=== PATIENT | female | born 1960 | race Caucasian/White ===

== ENCOUNTER 2024-01-06 09:24 | Outpatient (CLI) | payer MEDICARE, SELFPAY ==
--- NOTE | 2024-01-06 10:49 | W.ANESCHARGE ---
Anesthesia Charges Start Date/Time Anesthesia Start Date: 01/06/24 Anesthesia Start Time: 10:31 Stop Date/Time Anesthesia Stop Date: 01/06/24 Anesthesia Stop Time: 11:20
--- NOTE | 2024-01-06 11:22 | W.ANESCHARGE ---
Anesthesia Charges Start Date/Time Anesthesia Start Date: 01/06/24 Anesthesia Start Time: 10:31 Stop Date/Time Anesthesia Stop Date: 01/06/24 Anesthesia Stop Time: 11:20
== END 2024-01-06 09:25 | disposition home or self-care (01) ==
PROVIDERS: PCP Registered Nurse; Visit Provider Surgery
DX: Z12.11 Encounter for screening for malignant neoplasm of colon (principal); D12.3 Benign neoplasm of transverse colon; D12.8 Benign neoplasm of rectum; K63.89 Other specified diseases of intestine; Z86.0100 Personal history of colon polyps, unspecified
CPT/HCPCS: 00811; 45381; 45385; 88305; J2704

== ENCOUNTER 2024-01-22 10:39 | Outpatient (CLI) | payer MEDICARE, SELFPAY ==
--- OUTSIDE RECORDS SUMMARY | 2024-01-22 10:47 | XMS_ITS | Continuity of Care Document ---
Author Organization [facility] Address [address] [place] [address] Phone Care Team Providers Care Curing Oven Tender Name Role Phone Hamzah PAVON MD, [place] Unavailable Unavailable Advance Directives Directive Yes / No Effective Date File Name No Information Encounters Encounter Description Practice Location Reason(s) For Visit Diagnoses Date Provider Providers Copied on Encounter [facility], [address], [place], [place], [id number], [place] tel:[phone] No Information 0-200 7 Hamzah Haas. [address], [place], [address], [place]. tel:[phone] Referring Provider: [place] Hernandez, [address] [place], [place], [facility]. tel:[phone] Family History Family Member Type Diagnosis Age At Onset No Information Payers Payer name Insurance type Covered alliance party ID Authoriza tion(s) Blue Plus BL [id number] Social History Type Description Quantity Date Captured Comments Sex Female Smoking Status No Information Chief Complaint And Reason For Visit No Information Reason For Referral Reason For Referral No Information History Of Present Illness Encounter Date Complaint History Of Prese nt Illness No Information Functional Status Date Functional Assessmen t No Information Instructions Date Instruction Additional Infor mation No Information Assessments Type Assessment Date No Information Patient Care Teams Name Effective Dates (start - stop) Status Members No Information
== END 2024-01-22 10:40 | disposition home or self-care (01) ==
PROVIDERS: PCP Registered Nurse; Visit Provider Registered Nurse
DX: E55.9 Vitamin D deficiency, unspecified (principal); Z13.29 Encounter for screening for other suspected endocrine disorder
CPT/HCPCS: 80053; 84439; 84443

== ENCOUNTER 2024-03-16 13:07 | Outpatient (CLI) | payer MEDICARE, SELFPAY ==
--- NOTE | 2024-03-16 13:20 | CRLHL7_ITS ---
For Patients: As a result of the Cures Act, medical imaging exams and procedure reports are released immediately into your electronic medical record. You may view this report before your referring provider. If you have questions, please contact your health care provider. BILATERAL SCREENING MAMMOGRAM WITH COMPUTER-AIDED DETECTION AND TOMOSYNTHESIS TECHNIQUE: CC and MLO views were obtained. These mammographic images have been obtained using full-field digital technique. These mammographic images were interpreted with the benefit of computer-aided detection. Breast Tomosynthesis was used in this interpretation. COMPARISON FILM: 04/04/18, 03/16/16, 01/26/10. FINDINGS: There are scattered areas of fibroglandular density IMPRESSION: There is no radiographic evidence for malignancy. ASSESSMENT: BI-RADS Category 1: Negative RECOMMENDATION: Routine screening mammogram in 1 year. A lay language report of this examination will be provided to the patient. Ayaz Truong M.D. Diagnostic Radiologist [email or web address]/ya Transcribed: 3:41 p.katie pandya/Dictated by: Ayaz Truong MD @ 03/17/2024 8:50:00 AM (Electronically Signed)
== END 2024-03-16 13:08 | disposition home or self-care (01) ==
LOC: MAMMO 13:08
PROVIDERS: PCP Registered Nurse; Visit Provider Registered Nurse
DX: Z12.31 Encounter for screening mammogram for malignant neoplasm of breast (principal)
CPT/HCPCS: 77063; 77067

== ENCOUNTER 2024-04-22 14:50 | Outpatient (CLI) | payer MEDICARE, SELFPAY ==
--- NOTE | 2024-04-22 15:00 | CRLHL7_ITS ---
For Patients: As a result of the Century Cures Act, medical imaging exams and procedure reports are released immediately into your electronic medical record. You may view this report before your referring provider. If you have questions, please contact your health care provider. Indication: Lung cancer screening Technique: Low-dose lung cancer screening CT chest without contrast Comparison: None Findings: Heart is normal in size without pericardial effusion. Great vessels are in caliber. There is no mediastinal mass or lymphadenopathy. Linear right upper lobe pulmonary nodule average is 5 millimeters. There are few other scattered sub 4 millimeter pulmonary nodules. 18 millimeter right adrenal gland is indeterminate with Hounsfield units of 14. Bones and soft tissues are unremarkable. Impression: 1. 18 millimeter right adrenal nodule is not adequately characterized by this study, adrenal adenoma versus more aggressive adrenal neoplasm. Recommend appropriate laboratory correlation and adrenal CT to adequately characterize. 2. Pulmonary nodules averaging less than 6 millimeters, Lung RADS category 2/benign. Recommend continuing annual low-dose lung cancer screening chest CT. Please note that all CT scans at this facility use dose modulation, iterative reconstruction, and/or weight-based dosing when appropriate to reduce radiation dose to as low as reasonably achievable. Dictated by Azar Wallace MD @ 04/23/2024 9:48:55 AM (Electronically Signed)
== END 2024-04-22 14:51 | disposition home or self-care (01) ==
LOC: CT 14:51
PROVIDERS: PCP Registered Nurse; Visit Provider Registered Nurse
DX: Z12.2 Encounter for screening for malignant neoplasm of respiratory organs (principal); E27.9 Disorder of adrenal gland, unspecified; R91.8 Other nonspecific abnormal finding of lung field; F17.210 Nicotine dependence, cigarettes, uncomplicated
CPT/HCPCS: 71271

== ENCOUNTER 2024-05-13 15:00 | Outpatient (RCR) | payer MEDICARE, SELFPAY ==
--- NOTE | 2024-03-02 15:47 | PT.OPEX ---
PT [facility] Outpatient Eval PT [facility] Outpatient Eval Start: 02/13/24 16:40 Freq: Status: Active Protocol: Document 03/02/24 08:21 MLS (Rec: 03/02/24 15:45 MLS [id number]) E-signed By Naina Singh DPT Physical Therapy Outpatient Evaluation Insurance Information Recert Due Date 05/30/24 Insurance Name Medicare B Medical Diagnosis M54.2 Cervicalgia Treating Diagnosis Cervical tightness Referring MD Criss Jean Baptiste, VENDOR SPECIALIST Subjective Preferred Name Carlita Subjective Patient is a 63 year old female who presents to physical therapy with signs and symptoms consistent with cervical pain. She states that she has a lot of neck tightness. She states that it has been going on for years. She states that she has arthritis in her neck. She states that she gets vertigo regularly. She reports that she has jaw fatigue and it is painful at times. She reports that her nose is stuffed up and drips regularly. She states that she used to get auras in her eyes, but has not gotten a migraine. She watches her grandchildren 5 days a week, 2, 3 and 6 years old. No complaints of numbness and tingling into arms. She states that nothing makes the pain worse, but it is constantly there. Alleviating factors include: massage. Significant past medical history includes lumbar fusion (2006). Patient would like to achieve less pain through physical therapy sessions. 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 Objective Other/Pertinent Objective SPINAL ALIGNMENT/POSTURE Forward shoulders CERVICAL ROM Flexion: 50 Extension: 35 Right Rotation: 50 Left Rotation: 45 Right side bend: 20 Left Side bend: 20 SHOULDER AROM Grossly tested WNL B NECK/SHOULDER MMT: Shoulder shrug: R 4+/5 L 4+/5 Shoulder flexion: R 4+/5 L 4+/ 5 Shoulder abduction: R 4/5 L 4/ 5 Shoulder External Rotation: R 4/5 L 4/5 Shoulder Internal Rotation: R 4/5 L 4/5 Elbow Flexion: R 5/5 L 5/5 Elbow Ext: R 5/5 L 5/5 SPECIAL TEST -Spurlings Test: negative -Bakody Sign: negative -Cervical distraction test: negative Headaches - no JOINT MOBILITY/PALPATION Severe tenderness and tightness noted with palpation of bilateral upper trapezius TX: Access Code: [email or web address] URL: [email or web address] Date: 03/02/2024 Prepared by: Naina Singh Exercises - Seated Cervical Sidebending AROM - 1 x daily - 7 x weekly - 3 sets - 10 reps - Seated Cervical Rotation AROM - 1 x daily - 7 x weekly - 3 sets - 10 reps Functional Test Performed & Score 15/50 0-4 = no disability 5-14 = mild disability 15-24 = moderate disability 25-34 = severe disability >34 = complete disability Assessment Assessment/Impression Pt is a 63 year old female who presents with concerns of cervical pain and tightness. Patient also has notable objective findings including limited ROM, tenderness to palpation, and decreased strength which are also likely contributing to the problem. Patient is a good candidate for skilled therapy to target deficits described above. Skilled PT intervention is necessary for use of therapeutic exercise manual therapy, neuromuscular re- education, gait training, and therapeutic activity. Functional impairments include difficulty with: driving, sleeping, exercising, ADLs. See appropriate sections of PT eval for complete list of goals and POC. D/C plan and criteria is for pt to achieve the goals as listed below or until max rehab potential is met. Pt was agreeable with plan of care and goals established. Primary Functional Limitations driving sleeping exercising ADLS Plan of Care Rehabilitation Potential Good Physical Therapy Goals Within 10-12 weeks: 1.Pt will demonstrate independence in performance of home exercise program with the use of video and/or handouts in order to optimize functional mobility and reduce risk for re-injury. 2.Pt will demonstrate consistent HEP compliance to ensure progress in reaching established goals during course of care. 3.Patient will be able to drive for up to one hour without pain. 4.Patient will report pain levels <2/10 with all activities in order to improve functional mobility at home, work and during functional leisure activities. 5.Patient is able to sleep without waking more than one time due to pain in a 6-8 hour time frame. 6.Patient will be able to lift household items from the floor to shoulder height to perform ADLs without pain. 7.Pt will exhibit 5 pt improvement in Neck Disability Index measure to demonstrate functional improvement and progress towards goals Coordination/Communication With Referral Source Treatment Plan/Direct Interventions Joint Mobilization,Manual Therapy,Neuromuscular Re-ed, Therapeutic Activities, Therapeutic Exercises Patient Will Be Discharged From Therapy Independently Progressing Evaluation Billing Untimed Code Treatment Minutes 30 Complexity Low Certification Information Provider Signature Required Yes Provider Signature Shows Agreement With POC & Medical Necessity Physician NPI Number Write NPI# Here Physician Comment/Change : Physician Signature & Date Requested Please Sign/Date Here
== END 2024-07-27 09:41 | disposition home or self-care (01) ==
PROVIDERS: PCP Registered Nurse; Visit Provider Registered Nurse
DX: M54.2 Cervicalgia (principal); Z51.89 Encounter for other specified aftercare
CPT/HCPCS: 97110; 97140; 97161

== ENCOUNTER 2024-05-27 09:36 | Outpatient (CLI) | payer MEDICARE, SELFPAY ==
--- NOTE | 2024-05-27 10:00 | CRLHL7_ITS ---
For Patients: As a result of the Century Cures Act, medical imaging exams and procedure reports are released immediately into your electronic medical record. You may view this report before your referring provider. If you have questions, please contact your health care provider. Indication: Right adrenal nodule Technique: Limited noncontrast CT abdomen performed Please note that all CT scans at this facility use dose modulation, iterative reconstruction, and/or weight-based dosing when appropriate to reduce radiation dose to as low as reasonably achievable. Comparison: CT lung cancer screening exam 04/22/2024 Findings: Low-density circumscribed right adrenal nodule is present measuring 1.7 cm with Hounsfield units averaging 11. Normal kidneys. Visualized ureters normal. Left adrenal gland unremarkable. Normal spleen. Pancreas within normal limits. Atherosclerotic changes. Few scattered sub cm retroperitoneal lymph nodes are present which are considered incidental. Gallbladder normal. Normal noncontrast enhanced liver. Dependent areas of atelectasis/scarring noted. Postoperative changes to the lower lumbar spine. Impression: Benign 1.7 cm right adrenal adenoma. Please note that all CT scans at this facility use dose modulation, iterative reconstruction, and/or weight-based dosing when appropriate to reduce radiation dose to as low as reasonably achievable. Dictated by Ayaz Truong MD @ 05/28/2024 7:27:11 AM (Electronically Signed)
== END 2024-05-27 09:37 | disposition home or self-care (01) ==
LOC: CT 09:36
PROVIDERS: PCP Registered Nurse; Visit Provider Registered Nurse
DX: E27.9 Disorder of adrenal gland, unspecified (principal)
CPT/HCPCS: 74150

== ENCOUNTER 2024-12-02 14:39 | Outpatient (CLI) | payer MEDICARE, SELFPAY | END 2024-12-02 14:40 | disposition home or self-care (01) | PROVIDERS: Visit Provider Internal Medicine | DX: R42 Dizziness and giddiness (principal); F31.9 Bipolar disorder, unspecified | CPT/HCPCS: 80053; 84439; 84443 ==

== ENCOUNTER 2024-12-08 13:42 | Outpatient (CLI) | payer MEDICARE, SELFPAY ==
--- NOTE | 2024-12-08 14:00 | CRLHL7_ITS ---
For Patients: As a result of the Century Cures Act, medical imaging exams and procedure reports are released immediately into your electronic medical record. You may view this report before your referring provider. If you have questions, please contact your health care provider. INDICATION: Vertigo TECHNIQUE: Non-contrast CT of the head is submitted. No comparisons. FINDINGS: The ventricles, sulci and gyri are of normal size, shape and contour. Midline structures are centrally located. No convincing evidence of intra- or extra-axial fluid collections. IMPRESSION: 1. No radiographic evidence of acute intracranial abnormalities. Please note that all CT scans at this facility use dose modulation, iterative reconstruction, and/or weight-based dosing when appropriate to reduce radiation dose to as low as reasonably achievable. Dictated by Nicola Fu MD @ 12/09/2024 8:29:07 AM (Electronically Signed)
== END 2024-12-08 13:43 | disposition home or self-care (01) ==
LOC: CT 13:43
PROVIDERS: PCP Internal Medicine; Visit Provider Internal Medicine
DX: R42 Dizziness and giddiness (principal)
CPT/HCPCS: 70450

== ENCOUNTER 2024-12-14 14:49 | Emergency (ER) | payer MEDICARE, SELFPAY ==
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
[2024-12-14 14:55] VITALS: BP 127/94; PULSE 90; RESP 18; TEMP 36.9; O2SAT 93; BMI 34.2
[2024-12-14 16:01] LABS: PCR FLU A Negative PCR FLU A (Negative); PCR FLU B Negative PCR FLU B (Negative); PCR RSV Negative PCR RSV (Negative); SARS PCR* Negative SARS-CoV-2 (Negative)
[2024-12-14 16:24] VITALS: BP 114/73; PULSE 87; RESP 18; O2SAT 97
--- NOTE | 2024-12-14 16:33 | CRLHL7_ITS ---
For Patients: As a result of the Cures Act, medical imaging exams and procedure reports are released immediately into your electronic medical record. You may view this report before your referring provider. If you have questions, please contact your health care provider. INDICATION: Abdomen pain TECHNIQUE: CT Abdomen and pelvis with i.v. contrast. Coronal and sagittal reformats were obtained. CONTRAST: 92 mL Isovue 370 COMPARISON: 05/27/2024 FINDINGS: Lower chest: Segmental consolidation is present in the lateral right basilar lower lobe, likely due to pneumonia. Liver: Several small cysts are present in the right lobe of the liver measuring up to 6 mm. Spleen: Unremarkable. Pancreas: Unremarkable. Gallbladder: Unremarkable. Kidney: Unremarkable. No kidney or ureteral stones or obstruction seen. Adrenal: Unremarkable. Bowel: The stomach, small bowel, and colon are unremarkable. Previous appendectomy noted with no significant appendiceal stump identified. Vascular: Unremarkable. Lymph: Unremarkable. Peritoneum: Unremarkable. No pneumoperitoneum is seen. No significant ascites is noted. Pelvis: Unremarkable. Soft tissue: Unremarkable. Bone: Anterior and posterior spinal fusion of L5-S1 is noted. IMPRESSION: 1. Segmental consolidation is present in the lateral right basilar lower lobe, likely due to pneumonia. Dictated by Jaison Stevenson MD @ 12/14/2024 6:18:11 PM Please note that all CT scans at this facility use dose modulation, iterative reconstruction, and/or weight-based dosing when appropriate to reduce radiation dose to as low as reasonably achievable. Dictated by: Jaison Stevenson MD @ 12/14/2024 18:22:30 (Electronically Signed)
--- NOTE | 2024-12-14 16:37 | ED.GENADULT ---
HPI - General Adult General Chief complaint: Shortness of Breath/Dyspnea Stated complaint: hard time breathing/weakness in body Time Seen by Provider: 12/14/24 16:23 History of Present Illness HPI narrative: This 64-year-old female comes in reporting feeling ill since yesterday morning. She herself does not report any shortness of breath but her family member here stated that she thought she was short of breath. The patient reports abdominal pain diffusely throughout her abdomen. She states that it is a constant pain. She has had some nausea but no vomiting. She does not report any dysuria symptoms. She did have some hot feelings and then diaphoresis but did not measure any fever. She arrives here with normal vital signs. Related Data Previous Rx's ?Medication ?Instructions ?Recorded doxycycline hyclate 100 mg capsule 100 mg PO BID 10 days #20 caps 12/14/24 ketorolac 10 mg tablet 10 mg PO TID 5 days #15 tabs 12/14/24 Allergies Allergy/AdvReac Type Severity Reaction Status Date / Time nickel AdvReac Mild Verified 12/02/24 14:32 Review of Systems Status of ROS: Reports: 10 or more systems reviewed and unremarkable except as noted in History and below Narrative: Constitutional: Well-developed, well-nourished, no acute distress. HEENT: Normocephalic, atraumatic. Neck: Normal range of motion. Nontender. Supple. Heart: Regular. No murmurs. Normal rate. Intact distal pulses. Lungs: Clear to auscultation. No chest discomfort. No wheezes, rhonchi, or rales. Abdomen: Normal bowel sounds. Diffuse tenderness throughout the abdomen. Genitalia: Deferred. Back: No midline tenderness. Normal range of motion. Extremities: Normal range of motion. No injury. Skin: Intact. No rash. Warm. No erythema or pallor. Neurologic: No altered sensation. No weakness. Alert and oriented. Psychiatric: No suicidality. No anxiety or depression. No insomnia. Nursing notes and vitals signs are reviewed. [facility] Medical History (Updated 12/14/24 @ 18:43 by Tramaine Alberto MD) Vertigo ?R42 - Dizziness and giddiness (ICD-10) Varicose veins of both lower extremities ?I83.93 - Asymptomatic varicose veins of bilateral lower extremities (ICD-10) Bipolar depression ?F31.9 - Bipolar disorder, unspecified (ICD-10) Tobacco abuse ?Z72.0 - Tobacco use (ICD-10) GERD (gastroesophageal reflux disease) ?K21.9 - Gastro-esophageal reflux disease without esophagitis (ICD-10) Migraine with aura ?G43.109 - Migraine with aura, not intractable, without status migrainosus (ICD-10) Vitamin D deficiency ?E55.9 - Vitamin D deficiency, unspecified (ICD-10) Surgical History History of vaginal delivery Status post appendectomy ?Z90.49 - Acquired absence of other specified parts of digestive tract (ICD-10) History of back surgery ?Z98.890 - Other specified postprocedural states (ICD-10) History of hand surgery ?Z98.890 - Other specified postprocedural states (ICD-10) H/O tubal ligation ?Z98.51 - Tubal ligation status (ICD-10) Hx of tonsillectomy ?Z90.89 - Acquired absence of other organs (ICD-10) Family History Father Heart disease Seizure disorder Sister Bladder cancer Mother Thyroid disease Sister Leukemia Grandmother Heart disease Sister Hemochromatosis Social History What is your current living situation?: I presently have a place to live Problems where you live: mold In the past 12 months, utilities in danger of being shut off: no In past 12 months, lack of transportation kept you from medical appts, meetings, work, or getting things needed for daily living: no In the past 12 mos, have been you worried that your food would run out before you had money to buy more?: sometimes true In the past 12 mos, the food you bought just didn't last and you didn't have money to buy more?: never true How often does anyone, including family, friends and others, physically hurt you: never How often does anyone, including family, friends and others, insult or talk down to you: sometimes How often does anyone, including family, friends and others, threaten you with harm: never How often does anyone, including family, friends and others, scream or curse at you: sometimes Health Related Social Needs: Inadequate housing (Z59.1), food insecurity (Z59.41) and Other personal risk factors, not elsewhere classified (Z91.89) Exam Narrative: Exam Narrative: Constitutional: Well-developed, well-nourished, no acute distress. HEENT: Normocephalic, atraumatic. Neck: Normal range of motion. Nontender. Supple. Heart: Regular. No murmurs. Normal rate. Intact distal pulses. Lungs: Clear to auscultation. No chest discomfort. No wheezes, rhonchi, or rales. Abdomen: Normal bowel sounds. Diffuse tenderness throughout the abdomen with Rebound tenderness. Genitalia: Deferred. Back: No midline tenderness. Normal range of motion. Extremities: Normal range of motion. No injury. Skin: Intact. No rash. Warm. No erythema or pallor. Neurologic: No altered sensation. No weakness. Alert and oriented. Psychiatric: No suicidality. No anxiety or depression. No insomnia. Nursing notes and vitals signs are reviewed. Const: Vital Signs, click to edit/add: Vital Signs - 24 hr 12/14/24 14:55 12/14/24 16:24 Temperature 98.5 F Pulse Rate [Pulse Oximeter] 90 87 Respiratory Rate 18 18 Blood Pressure [Ri ght Upper Arm] 127/94 H 114/73 Pulse Oximetry 93 97 Oxygen Delivery Me thod Room Air Room Air Course Vital Signs Vital signs: Initial Vital Signs Temperature 98.5 F 12/14/24 14:55 Temperature Source Temporal Artery Scan 12/14/24 14:55 Pulse Rate 90 12/14/24 14:55 Respiratory Rate 18 12/14/24 14:55 Blood Pressure 127/94 H 12/14/24 14:55 Blood Pressure Mean 105 12/14/24 14:55 Blood Pressure Position Sitting 12/14/24 14:55 Pulse Oximetry 93 12/14/24 14:55 Oxygen Delivery Method Room Air 12/14/24 14:55 Vital Signs Temperature 98.5 F 12/14/24 14:55 Pulse Rate 90 12/14/24 14:55 Respiratory Rate 18 12/14/24 14:55 Blood Pressure 127/94 H 12/14/24 14:55 Pulse Oximetry 93 12/14/24 14:55 Oxygen Delivery Method Room Air 12/14/24 14:55 Temperature 98.5 F 12/14/24 14:55 Pulse Rate 87 12/14/24 16:24 Respiratory Rate 18 12/14/24 16:24 Blood Pressure 114/73 12/14/24 16:24 Pulse Oximetry 97 12/14/24 16:24 Oxygen Delivery Method Room Air 12/14/24 16:24 Medications Administered Medications: Discontinued Medications Generic Name Dose Route Start Last Admin Trade Name Sherin PRN Reason Stop Dose Admin Sodium Chloride 500 mls @ 500 mls/hr 12/14/24 16:32 12/14/24 17:00 0.9 % Sodium Chloride 500 Ml IV 12/14/24 17:31 500 mls/hr .Q1H ONE Administration Medical Decision Making MDM Narrative Medical decision making narrative: This patient comes in with symptoms as described above. She does have normal vital signs. She did describe symptoms that were suspicious for a fever but did not measure her temperature. She had significant abdominal pain such that I decided order a CT scan of the abdomen and pelvis with IV contrast. This does show evidence of a lower lobe pneumonia. There are no other findings to explain her symptoms on CT imaging. Urinalysis does show 5-10 white blood cells per high-powered field but the patient does not report any dysuria symptoms. She is maintaining normal vital signs and is okay to be discharged home. I did provide prescription for doxycycline and Toradol. Lab Data Labs: Lab Results 12/14/24 12/14/24 12/14/24 Range/Units 15:12 16:45 17:30 WBC 8.33 (4.50-11.00) K/uL RBC 4.58 (4.00-5.20) m/uL Hgb 14.1 (12.0-16.0) gm/dL Hct 42.4 (33.0-51.0) % MCV 93 (80-100) fL MCH 31 (26-34) pg MCHC 33 (32-36) gm/dL RDW Coeff of Velasquez 13.0 (11.5-15.5) % Plt Count 189 (140-440) K/uL Neut % (Auto) 78.1 H (42.0-72.0) % Lymph % (Auto) 11.0 L (20-44) % [place] % (Auto) 9.4 (0.0-11.0) % Eos % (Auto) 0.1 (0.0-7.0) % Baso % (Auto) 0.4 (0.0-3.0) % Neut # (Auto) 6.50 (1.7-7.0) K/uL Lymph # (Auto) 0.90 (0.90-2.90) K/uL [place] # (Auto) 0.80 (0.00-0.90) K/UL Eos # (Auto) 0.01 (0.00-0.50) K/uL Baso # (Auto) 0.03 (0.00-0.30) K/uL Abs Immat Gran (auto) 0.08 (0.00-0.30) K/uL Imm/Tot Granulo (auto) 1.0 % Sodium 136 (135-149) mmol/L Potassium 3.6 (3.6-5.1) mmol/L Chloride 105 (96-114) mmol/L Carbon Dioxide 23 (20-32) mmol/L Anion Gap 8 (7-15) mEq/L BUN 11 (7-30) mg/dL Creatinine 0.8 (0.5-1.5) mg/dL Estimated Creat Clear 45.54 Estimated GFR 83 ml/min Glucose 115 (60-115) mg/dL Calcium 9.0 (8.4-10.6) mg/dL Urine Color Yellow (Yellow) Urine Appearance Clear (Clear) Urine pH 5.5 (5.0-8.5) Ur Specific [place] 1.020 (1.000-1.030) Urine Protein Trace A (Negative) Urine Glucose (UA) Negative (Negative) Urine Ketones 3+ A (Negative) Urine Blood 1+ A (Negative) Urine Nitrite Negative (Negative) Urine Bilirubin 1+ A (Negative) Urine Urobilinogen 1.0 (0.2-1.0) Ur Leukocyte Esterase Trace A (Negative) Urine RBC 0-2 (0-2) Urine WBC 5-10 A (0-5) Ur Squamous Epith Cells Moderate A (None-Few) Urine Bacteria Few A (None) Fine Granular Casts Few A (None) SARS-CoV-2 (PCR) Negative SARS-CoV-2 (Negative) Influenza Type A (PCR) Negative PCR FLU A (Negative) Influenza Type B (PCR) Negative PCR FLU B (Negative) RSV (PCR) Negative PCR RSV (Negative) Imaging Data CT scan - abdomen: Radiologist's impression: Segmental consolidation is present in the lateral right basilar lower lobe, likely due to pneumonia. Discharge Plan Discharge Clinical Impression: Community acquired pneumonia Patient Disposition: Home, Self-Care Condition: Stable Additional Instructions: Take medication as prescribed. Follow up with MD return of not improving or worsening. Prescriptions: New doxycycline hyclate 100 mg capsule 100 mg PO BID 10 Days Qty: 20 0RF ketorolac 10 mg tablet 10 mg PO TID 5 Days Qty: 15 0RF Follow Up/Referrals: Joseph Dubois MD [Primary Care Provider, Internal Medicine] Stand Alone Forms: [employer] Info Instructions
[2024-12-14 17:00] LABS: Hematocrit* 42.4 % (33.0-51.0); Hemoglobin* 14.1 gm/dL (12.0-16.0); Immature Granulocytes Abs Auto 0.08 K/uL (0.00-0.30); Immature Granulocytes Pct Auto 1.0 %; Mean Corpuscular HGB Conc 33 gm/dL (32-36); Mean Corpuscular Hemoglobin 31 pg (26-34); Mean Corpuscular Volume 93 fL (80-100); RDW Coefficient of Variation % 13.0 % (11.5-15.5); Red Blood Count* 4.58 m/uL (4.00-5.20); White Blood Count* 8.33 K/uL (4.50-11.00)
[2024-12-14] MEDS: 0.9 % SODIUM CHLORIDE 500 ML 500 ML IV (17:00)
[2024-12-14 17:01] LABS: Lymphocytes Absolute Auto 0.90 K/uL (0.90-2.90)
[2024-12-14 17:02] LABS: Slide Review Reflex No
[2024-12-14 17:40] LABS: Appearance Urine Clear (Clear)
[2024-12-14 18:18] LABS: Chloride* 105 mmol/L (96-114); Potassium* 3.6 mmol/L (3.6-5.1); Sodium* 136 mmol/L (135-149)
[2024-12-14 18:21] LABS: Anion Gap 8 mEq/L (7-15); Blood Urea Nitrogen* 11 mg/dL (7-30); Calcium* 9.0 mg/dL (8.4-10.6); Carbon Dioxide* 23 mmol/L (20-32); Creatinine* 0.8 mg/dL (0.5-1.5); Est. Creatinine Clearance* 45.54; Estimated Glomerular Filt Rate 83 ml/min; Glucose* 115 mg/dL (60-115)
[2024-12-14] MEDS: DOXYCYCLINE HYCLATE 100 MG PO (18:51)
== END 2024-12-14 18:56 | disposition home or self-care (01) ==
PROVIDERS: Emergency Provider Emergency Medicine Emergency Medical Services; PCP Internal Medicine
DX: J18.9 Pneumonia, unspecified organism (principal)
CPT/HCPCS: 36415; 74177; 80048; 81001; 85025; 87086; 87631; 99284; A9270; J7030; Q9967

== ENCOUNTER 2025-01-07 11:13 | Outpatient (CLI) | payer MEDICARE, SELFPAY ==
--- NOTE | 2025-01-07 12:42 | P.ANES_ITS ---
Anesthesia Charges Start Date/Time Anesthesia Start Date: 01/07/25 Anesthesia Start Time: 11:55 Stop Date/Time Anesthesia Stop Date: 01/07/25 Anesthesia Stop Time: 12:52 Coding CPT Codes CPT Codes: CLEO LWR INTST NDSC NOS - 64889 ([id number]) QK - HOT KETTLE TENDER 2-4 CNCRNT CLEO PROC, QX - SUPERVISOR VEGETABLE FARMING SVC W/ MD MED DIRECTION, P2 - PATIENT W/MILD SYST DISEASE
--- NOTE | 2025-01-07 12:42 | W.ANESCHARGE ---
Anesthesia Charges Start Date/Time Anesthesia Start Date: 01/07/25 Anesthesia Start Time: 11:55 Stop Date/Time Anesthesia Stop Date: 01/07/25 Anesthesia Stop Time: 12:52 Coding CPT Codes CPT Codes: CLEO LWR INTST NDSC NOS - 20050 ([id number]) QK - PHOTOGRAPHIC RESTORER 2-4 CNCRNT CLEO PROC, QX - STOCKROOM CLERK SVC W/ MD MED DIRECTION, P2 - PATIENT W/MILD SYST DISEASE
--- NOTE | 2025-01-07 12:53 | P.ANES_ITS ---
Anesthesia Charges Start Date/Time Anesthesia Start Date: 01/07/25 Anesthesia Start Time: 11:55 Stop Date/Time Anesthesia Stop Date: 01/07/25 Anesthesia Stop Time: 12:52 Coding CPT Codes CPT Codes: CLEO LWR INTST NDSC NOS - 82628 ([id number]) P2 - PATIENT W/MILD SYST DISEASE, QK - WET CHEMISTRY ANALYST 2-4 CNCRNT ANES PROC, QX - VIRTUAL RECRUITER SVC W/ MD MED DIRECTION
--- NOTE | 2025-01-07 12:53 | W.ANESCHARGE ---
Anesthesia Charges Start Date/Time Anesthesia Start Date: 01/07/25 Anesthesia Start Time: 11:55 Stop Date/Time Anesthesia Stop Date: 01/07/25 Anesthesia Stop Time: 12:52 Coding CPT Codes CPT Codes: CLEO LWR INTST NDSC NOS - 30063 ([id number]) P2 - PATIENT W/MILD SYST DISEASE, QK - FUR REPAIR INSPECTOR 2-4 CNCRNT ANES PROC, QX - HORSE RACE TIMER SVC W/ MD MED DIRECTION
== END 2025-01-07 11:14 | disposition home or self-care (01) ==
LOC: OP CLINIC 11:15
PROVIDERS: PCP Internal Medicine; Visit Provider Surgery
DX: Z12.11 Encounter for screening for malignant neoplasm of colon (principal); D12.1 Benign neoplasm of appendix; D12.2 Benign neoplasm of ascending colon; D12.3 Benign neoplasm of transverse colon; D12.4 Benign neoplasm of descending colon; D12.8 Benign neoplasm of rectum; Z86.0100 Personal history of colon polyps, unspecified
CPT/HCPCS: 00811; 45385; J2405; J2704

== ENCOUNTER 2025-01-26 13:56 | Outpatient (CLI) | payer MEDICARE, SELFPAY ==
--- NOTE | 2025-02-16 12:00 | W.PM.SLEEP ---
Sleep Study Details Details Interpreting Provider: Brady Date of Sleep Study: 01/26/25 Sleep Study Details: STUDY TYPE:? Home unattended ? BMI:? 32.92 ORDERING PROVIDER:? Brady INDICATION:? Concern for sleep apnea ? SLEEP SUMMARY:? 538 minutes monitored RESPIRATORY SUMMARY:? AHI 12.5 rule 1 a, 9.0 CMS guideline Low oxygen 84 51.3% of study oxygen less than 90% Snoring 95.8% Central apnea index 3.8 PERIODIC LIMB MOVEMENTS OF SLEEP:? Not recorded CARDIAC:? Range 50-92, mean 57.4 beats per minute IMPRESSION:? Mild obstructive sleep apnea with some central apneas. Hypoxemia for over 50% of the study RECOMMENDATION: Treatment options would be CPAP or dental appliance. Once effective treatment is established an overnight oxygen study should be performed. Further cardiopulmonary evaluation may be indicated. Alternative would be an in-lab titration.
== END 2025-01-26 13:57 | disposition home or self-care (01) ==
LOC: SLEEP 13:56
PROVIDERS: PCP Internal Medicine; Visit Provider Otolaryngology
DX: G47.33 Obstructive sleep apnea (adult) (pediatric) (principal)
CPT/HCPCS: 95806

== ENCOUNTER 2025-02-10 10:48 | Outpatient (CLI) | payer MEDICARE, SELFPAY | END 2025-02-10 10:49 | disposition home or self-care (01) | PROVIDERS: PCP Internal Medicine; Visit Provider Internal Medicine | DX: K21.9 Gastro-esophageal reflux disease without esophagitis (principal) | CPT/HCPCS: 80053; 80061; 82306 ==